=== PATIENT | female | born 1980 | race Caucasian/White ===

== ENCOUNTER → 2019-02-19 09:45 | Outpatient (CLI) | payer OTHER, SELFPAY ==
--- NOTE | 2019-02-19 09:46 | DI.US.S_ITS ---
PROCEDURE: US OB LIMITED INDICATIONS: DATING OUTSIDE/PRIOR DATING DATA: Last menstrual period (LMP): 11/11/18. LMP-based estimated date of delivery (AMANDA): 08/18/19. First dating scan (date and location): 02/19/19. Estimated date of delivery (AMANDA) from first dating scan: 08/15/19. TECHNIQUE: Real-time scanning was performed of the fetus, with image documentation and biometric measurements. Endovaginal scanning: Not performed COMPARISON: None. FINDINGS: General: A single living intrauterine gestation is present. Presentation: Breech. Placenta: Placental position is posterior Amniotic fluid index: Subjectively normal. Single deepest pocket measures 3.4 cm heart rate: 150 beats per minute. Maternal cervical canal: 3.6 cm long. Normal lower limit is 2.5 cm. biometrics: Biparietal diameter: 2.6 cm, 14 weeks 4 days Head circumference: 9.0 cm, 14 weeks 3 days Abdominal circumference: 8.0 cm, 14 weeks 3 days Femur length: 1.2 cm, 13 weeks 4 days Estimated gestational age from initial scan: not applicable. Composite gestational age from present scan: 14 weeks 5 days Estimated weight and percentile: A not applicable Measurement variability for biometric dating: +/- 7 days from 14 weeks to 15 weeks 6 days gestation, +/- 10 days from 16 weeks to 21 weeks 6 days gestation, +/- 2 weeks from 22 weeks to 27 weeks 6 days gestation, +/- 3 weeks for 28 weeks gestation or later. weight reference: 4500 g or EFW >90/95% is considered macrosomia or large for gestational age. EFW <10% is small for gestational age. EFW 5% or less is considered intra-uterine growth restriction. Other: Not applicable. IMPRESSION: Single living intrauterine fetus with a gestational age of 14 weeks and 5 days by today's ultrasound measurements, corresponding to an AMANDA of 08/15/19. This is concordant with the reported LMP as above. Dictated by: Carlos Lagos M.D. on 02/19/2019 at 16:51 Approved by: Carlos Lagos M.D. on 02/19/2019 at 16:54
[2019-02-19 10:54] LABS: Add Manual Diff / Slide Review NO; Basophils Absolute Auto 0 /uL (0-100); Basophils Percent Auto 0.3 % (0-2); Eosinophils Absolute Auto 200 /uL (0-450); Eosinophils Percent Auto 2.1 % (2-4); Hematocrit 35.3 % (36-46); Hemoglobin 12.5 g/dL (12.0-16.0); Lymphocytes Absolute Auto 1600 /uL (1100-4500); Lymphocytes Percent Auto 16.2 % (25-40); Mean Corpuscular HGB Conc 35.5 % (30-36); Mean Corpuscular Hemoglobin 31.7 PG (26-34); Mean Corpuscular Volume 89.4 fL (80-100); Monocytes Absolute Auto 800 /uL (0-900); Monocytes Percent Auto 7.9 % (3-14); Neutrophils Absolute Auto 7100 /uL (1500-7000); Neutrophils Percent Auto 73.5 % (50-75); Platelet Count 173 X10^3/uL (150-400); Red Blood Cell Count 3.94 X10^6/uL (4.0-5.2); Red Cell Distribution Width 12.2 % (11.6-14.8); White Blood Cell Count 9.7 X10^3/uL (4.5-11.0)
[2019-02-19 10:56] LABS: Appearance Urine UA CLEAR; Bilirubin Urine UA NEGATIVE (NEGATIVE); Color Urine UA YELLOW; Glucose Urine UA NEGATIVE (Negative); Ketones Urine UA NEGATIVE (NEGATIVE); Leukocyte Esterase Urine UA NEGATIVE (NEGATIVE); Nitrite Urine UA NEGATIVE (Negative); Occult Blood Urine UA TRACE-LYSED (Negative); Protein Urine UA NEGATIVE (Negative); Urobilinogen Urine UA 0.2 E.U./dL (0.2)
[2019-02-19 11:53] LABS: Hepatitis B Surface Antigen NEGATIVE s/c (NEGATIVE); Rubella Antibody IgG 22.3 IU/mL (>15)
[2019-02-19 12:13] LABS: HIV 1 & 2 Ab/Ag 4th Gen Combo NEGATIVE (NEGATIVE); Hep C Virus Ab w/Reflex Quant NEGATIVE s/c (NEGATIVE)
[2019-03-12 11:25] LABS: RPR Screen NONREACITVE
== END ==
PROVIDERS: PCP Physician Assistant; Visit Provider Specialist
DX: Z34.82 Encounter for supervision of other normal pregnancy, second trimester (principal)
CPT/HCPCS: 36415; 76815; 80055; 81003; 86787; 86803; 86850; 86900; 86901; 87086; 87389

== ENCOUNTER → 2019-05-23 14:51 | Outpatient (CLI) | payer OTHER, SELFPAY ==
--- NOTE | 2019-05-23 14:52 | DI.US.S_ITS ---
PROCEDURE: US OB >= 14 WEEKS FETUS INDICATIONS: ANATOMY OUTSIDE/PRIOR DATING DATA: Last menstrual period (LMP): 11/11/18. LMP-based estimated date of delivery (AMANDA): 08/18/19. First dating scan (date and location): 02/19/19. Estimated date of delivery (AMANDA) from first dating scan: 08/15/19. TECHNIQUE: Real-time scanning was performed of the fetus, with image documentation and biometric measurements. COMPARISON: [facility], , OB >= 14 WEEKS FETUS, 04/03/2019, 14:48. FINDINGS: General: A single living intrauterine gestation is present. Presentation: Breech. Placenta: Placental position is posterior fundal, without previa. Amniotic fluid index: 13.3 cm, normal range is 5-24 cm. heart rate: 137 beats per minute. Maternal cervical canal: 3.6 cm long. Normal lower limit is 2.5 cm. biometrics: Biparietal diameter: 28 weeks 3 days Head circumference: 28 weeks Abdominal circumference: 28 weeks 3 days Femur length: 27 weeks 1 day Estimated gestational age from initial scan: 28 weeks Composite gestational age from present scan: 28 weeks Estimated weight and percentile: 1156 g; 36% Measurement variability for biometric dating: +/- 7 days from 14 weeks to 15 weeks 6 days gestation, +/- 10 days from 16 weeks to 21 weeks 6 days gestation, +/- 2 weeks from 22 weeks to 27 weeks 6 days gestation, +/- 3 weeks for 28 weeks gestation or later. weight reference: 4500 g or EFW >90/95% is considered macrosomia or large for gestational age. EFW <10% is small for gestational age. EFW 5% or less is considered intra-uterine growth restriction. Anatomic survey: Neuro: Ventricles are non-dilated at less than 10 mm. Cisterna magna is normal at 3-11 mm. Cerebellum is normal in size and morphology. Nuchal skin fold: Normal at less than 6 mm between 14-21 weeks gestational age. Face: Nose and lips, facial profile are normal. Spine: No evidence for spina bifida. Heart: 4-chambered heart is present, with normal ventricular outflow tracts. Diaphragm: Diaphragm is intact. Stomach: Left-sided stomach is present. Kidneys: No hydronephrosis. Normal is less than 5 mm in 2nd trimester, less than 7 mm in 3rd trimester. Cord: 3-vessel cord has orthotopic insertion. Bladder: Normal in size. Extremities: All 4 extremities identified. bowel appears mildly echogenic. IMPRESSION: 1. Normal interval growth there 2. bowel appears mildly echogenic; otherwise normal anatomic survey. As an isolated finding, echogenic bowel is associated with a normal outcome and 75% of cases. Dictated by: Kevan Parra [facility] Interpreted: Reggie Martinez MD on 05/23/2019 at 16:35 Approved by: Reggie Martinez M.D. on 05/23/2019 at 17:24
== END ==
PROVIDERS: PCP Physician Assistant; Visit Provider Specialist
DX: Z36.89 Encounter for other specified antenatal screening (principal); Z3A.28 28 weeks gestation of pregnancy
CPT/HCPCS: 76811

== ENCOUNTER → 2019-07-19 15:05 | Outpatient (CLI) | payer OTHER, MEDICAID, SELFPAY ==
[2019-07-20 14:23] LABS: Strep Grp B PCR NEG for Grp B Strep
== END ==
PROVIDERS: PCP Physician Assistant; Visit Provider Specialist
DX: Z34.83 Encounter for supervision of other normal pregnancy, third trimester (principal); Z3A.36 36 weeks gestation of pregnancy
CPT/HCPCS: 87653

== ENCOUNTER 2019-08-03 12:09 | Inpatient (IN) | payer OTHER, MEDICAID, SELFPAY ==
--- NOTE | 2019-08-03 15:28 | PM.OBHP.1 ---
OB HPI Date/Time Date of admission: 08/03/19 Date Patient Seen: 08/03/19 Time Patient Seen: 15:28 History of Present Condition Chief complaint: LABOR : 3 Para: 1 Estimated Date of Delivery: 08/19/19 Estimated Gestational Age (weeks): 37 Narrative: Maris Cornelius is a 38 year old female admitted with spontaneous rupture membranes in early labor History of Present care: limited care, initiated at week # (14), number of visits (6) and pounds weight gain (35) Dating criteria: LMP confirmed by 2nd trimester US Ultrasounds: abnormal US findings (Mildly echogenic bowel) Obstetrical complications: none Medical complications: none Preadmission Labs Blood type: A (+) positive -: Antibody screen: negative, GBS status: negative, HBsAG: negative, HIV: negative and RPR/VDLR: negative -: Chlamydia screen: not detected and Gonorrhea screen: not detected -: Rubella: immune and Varicella: immune HCAB: negative PAP: Abnormal (Low-grade dysplasia) Prior (ies) History: 03/21/2006 spontaneous vaginal delivery male 41.5 weeks 8 lb 3 oz Evaluation Evaluation Baseline heart rate: 145 Variability: Moderate (11-25) monitor accelerations: Present monitor decelerations: Absent Contraction Frequency (minutes): 4 Uterine Contraction Intensity: Moderate Category of Tracing: II Cervical dilation (cm): 3 Cervical effacement (%): 100 station: -2 Non-invasive Membranes Rupture Test: positive [facility] Medical History (Updated 04/02/19 @ 10:21 by Felisa Gregg) Anemia (Chronic ~2005) Chicken pox (Resolved ~1989) Restless leg syndrome (Chronic ~2005) Surgical History (Updated 04/02/19 @ 10:21 by Felisa Gregg) Anesthesia (Resolved) History of elective Status post right partial knee replacement (Resolved ~01/2004) Family History (Updated 04/02/19 @ 10:21 by Felisa Gregg) Grandfather No problems noted. Social History Smoking Status: Unknown if ever smoked Meds Home Medications and Allergies Home Medications Medication Instructions Recorded Confirmed Type prenat.vits,chuy,jsn-qfsl-ohhno 1 tab PO DAILY 02/19/19 02/19/19 History Allergies Allergy/AdvReac Type Severity Reaction Status Date / Time codeine [CODEINE] AdvReac Unknown GI UPSET Verified 02/19/19 16:40 Review of Systems Review of Systems Narrative: Patient denies headaches, scotomata, epigastric pain. Good movement. No fevers. Spontaneous rupture membranes 6:00 a.m. today. ROS: Yes All systems reviewed with the patient and are negative except as otherwise documented Exam Vital Signs (past 8 hours): Blood pressure 121/70, pulse of 88, temperature 36.4? Narrative Exam Narrative: HEENT exam within normal limits. Lungs are clear to auscultation and percussion. Heart is regular rate and rhythm no S3-S4 or murmurs. Abdomen is soft, nontender. Fetus is vertex. Extremities with trace edema and nontender Assessment and Plan Assessment and Plan Assessment and Plan narrative: 37 week 5 day gestation with spontaneous rupture membranes in early labor. Anticipate vaginal delivery
[2019-08-03 16:59] LABS: Add Manual Diff / Slide Review NO; Basophils Absolute Auto 100 /uL (0-100); Basophils Percent Auto 0.3 % (0-2); Eosinophils Absolute Auto 100 /uL (0-450); Eosinophils Percent Auto 0.7 % (2-4); Hematocrit 32.3 % (36-46); Hemoglobin 11.5 g/dL (12.0-16.0); Lymphocytes Absolute Auto 1800 /uL (1100-4500); Lymphocytes Percent Auto 8.6 % (25-40); Mean Corpuscular HGB Conc 35.6 % (30-36); Mean Corpuscular Hemoglobin 32.4 PG (26-34); Mean Corpuscular Volume 91.1 fL (80-100); Monocytes Absolute Auto 1700 /uL (0-900); Monocytes Percent Auto 8.5 % (3-14); Neutrophils Absolute Auto 16700 /uL (1500-7000); Neutrophils Percent Auto 81.9 % (50-75); Platelet Count 199 X10^3/uL (150-400); Red Blood Cell Count 3.55 X10^6/uL (4.0-5.2); Red Cell Distribution Width 13.3 % (11.6-14.8); White Blood Cell Count 20.4 X10^3/uL (4.5-11.0)
[2019-08-03] MEDS: LACTATED RINGERS 1,000 ML 100 ML IV (17:00)
--- NOTE | 2019-08-03 17:50 | PM.OBPRVD ---
Labor & Delivery Delivery date: 08/03/19 Intrapartal events: None Cervical ripening method: none Induction method: none Delivery monitor: external FHT and external uterine Route of delivery: L&D Laceration Description: Perineal - 1st Degree Delivery repair: chromic (3 0) Estimated blood loss (mL): 100 Anesthesia type: Local (3 cc of 1% lidocaine) Narrative: Patient arrived on Labor and delivery after spontaneous rupture membranes clear fluid. She progressed in active labor. heart tones category 1 to category 2 throughout labor. She delivered spontaneously, over an intact perineum. The viable male infant was placed on the maternal abdomen. After the cord stopped pulsating the cord was clamped, cut, and cord bloods obtained. The placenta delivered spontaneously, intact, with 3 vessels. There were no cervical or vaginal tears. A first-degree perineal tear was repaired after injecting with approximately 3 cc of 1% lidocaine. Repair was with 3 0 chromic suture in the usual 2 layer fashion. Both infant mother doing well. Baby 1: gender: Male Presentation: vertex position: Right Occiput Anterior Placenta delivery description: Spontaneous cord vessel description: 3 Vessels score (1 min): 9 score (5 min): 9 Plan for aftercare: Routine post vaginal delivery
[2019-08-03 18:41] VITALS: BP 111/68
[2019-08-03] MEDS: OXYTOCIN 10 UNIT/ML VIAL IM (19:30)
[2019-08-03] MEDS: IBUPROFEN 600 MG TABLET PO (19:54)
[2019-08-04 06:19] LABS: Add Manual Diff / Slide Review NO; Basophils Absolute Auto 100 /uL (0-100); Basophils Percent Auto 0.3 % (0-2); Eosinophils Absolute Auto 200 /uL (0-450); Eosinophils Percent Auto 0.9 % (2-4); Hematocrit 30.7 % (36-46); Hemoglobin 10.7 g/dL (12.0-16.0); Lymphocytes Absolute Auto 2400 /uL (1100-4500); Mean Corpuscular HGB Conc 34.8 % (30-36); Mean Corpuscular Volume 91.9 fL (80-100); Monocytes Absolute Auto 1900 /uL (0-900); Monocytes Percent Auto 9.3 % (3-14); Neutrophils Absolute Auto 15500 /uL (1500-7000); Neutrophils Percent Auto 77.5 % (50-75); Platelet Count 153 X10^3/uL (150-400); Red Blood Cell Count 3.34 X10^6/uL (4.0-5.2); Red Cell Distribution Width 13.4 % (11.6-14.8); White Blood Cell Count 20.1 X10^3/uL (4.5-11.0)
--- NOTE | 2019-08-04 08:59 | P.DS_ITS ---
Discharge Providers Provider Date of admission: 08/03/19 12:09 Discharge Date: 08/04/19 Primary care physician: Koki Belle PA-C Consults: 08/03/19 16:52 Consult to Anesthesiology Urgent Comment: Consulting Provider: Anesthesiologist Reason for consultation: Epidural Has provider been notified: No 08/04/19 17:47 Consult to Laminating Machine Tender Routine Comment: Discharge provider: Sylvia Chavez MD Summary Hospital Course Date Patient Seen: 08/04/19 Time Patient Seen: 09:00 Procedures: Spontaneous vaginal delivery Hospital Course: Patient arrived in Labor and delivery in active labor after spontaneous rupture membranes. She had a spontaneous vaginal delivery with no tears. Both viable male and mother doing well. Patient denies headaches, scotomata, epigastric pain. She is urinating and ambulating well. No pain. Mild lochia. Peripartum Data Infant Delivery Method: Natural Vaginal Laceration description: None complications: none 1: Gender: Male Disposition of : home Discharge Diagnosis (1) Vaginal delivery: Status: Acute Status at Discharge Cognitive/behavioral status at discharge: oriented Functional status at discharge: independent ambulation Overall status at discharge: patient is progressing back to baseline Time Spent with Patient Time attestation: Total time spent providing and/or coordinating discharge services: Time spent: Less than 30 minutes Objective Labs Result Diagrams: 08/04/19 05:55 Labs: Laboratory Results - last 24 hr 08/03/19 08/03/19 08/04/19 16:03 16:03 05:55 WBC 20.4 H 20.1 H RBC 3.55 L 3.34 L Hgb 11.5 L 10.7 L Hct 32.3 L 30.7 L MCV 91.1 91.9 MCH 32.4 32.0 MCHC 35.6 34.8 RDW 13.3 13.4 Plt Count 199 153 Neut % (Auto) 81.9 H 77.5 H Lymph % (Auto) 8.6 L 12.0 L [place] % (Auto) 8.5 9.3 Eos % (Auto) 0.7 L 0.9 L Baso % (Auto) 0.3 0.3 Neut # (Auto) 01180 H 33750 H Lymph # (Auto) 1800 2400 [place] # (Auto) 1700 H 1900 H Eos # (Auto) 100 200 Baso # (Auto) 100 100 Blood Type A Positive Antibody Screen Negative Exam Vital Signs (past 8 hours): Blood pressure 122/66, pulse of 85, temperature 36.3? Narrative Exam Narrative: Abdomen is soft, nontender. Uterus is firm, at U, nontender. Mild lochia. Extremities without edema and nontender. Patient's blood type is A positive, she is rubella immune. Discharge Plan Discharge Plan Patient Disposition: Home Discharge orders & Medications Prescriptions: Continued prenat.vits,chuy,[id number] tablet 1 tab PO DAILY RF: 0 Follow up/Referrals: Sylvia Chavez MD [Physician] - 1 Month Koki Belle PA-C [Primary Care Provider] - Diet/Activity/Treatments Diet: Regular Activity: Nothing in vagina for 4 weeks Skin/Wound/Dressing Care Report to your healthcare provider any signs of infection, such as:: chills, fever and increased pain Discharge Data Primary Care Provider: Koki Belle
[2019-08-04] MEDS: DOCUSATE 100 MG CAPSULE PO (09:38)
[2019-08-04] MEDS: FERROUS GLUCONATE 324 MG TABLET PO (09:38)
[2019-08-04] MEDS: IBUPROFEN 600 MG TABLET PO (09:38)
[2019-08-04 17:00] VITALS: BP 111/68; PULSE 88; RESP 18; TEMP 36.3
== END 2019-08-04 17:25 | disposition home or self-care (01) | DRG 807 ==
PROVIDERS: Admitting Provider Specialist; PCP Physician Assistant; Referring Provider Specialist; Visit Provider Specialist
DX: O70.0 First degree perineal laceration during delivery (principal); Z37.0 Single live birth; Z3A.37 37 weeks gestation of pregnancy
CPT/HCPCS: 36415; 59050; 59410; 84112; 85025; 86850; 86900; 86901; G0379; J2590

== ENCOUNTER → 2025-04-23 10:25 | Outpatient (CLI) | payer OTHER, SELFPAY | PROVIDERS: PCP Physician Assistant; Visit Provider Nurse Practitioner Adult Health | DX: Z11.3 Encounter for screening for infections with a predominantly sexual mode of transmission (principal) | CPT/HCPCS: 87491; 87591; 87661 ==